=== PATIENT | female | born 1960 | race Caucasian/White ===

== ENCOUNTER 2018-06-01 08:59 | Emergency (ER) | payer SELFPAY ==
[~2018-06-01] VITALS: Ht 162.6 cm; Wt 92.7 kg
[2018-06-01 09:53] VITALS: BP 119/70
== END 2018-06-01 09:56 | disposition home or self-care (01) ==
LOC: ED 09:45
DX: B30.8 Other viral conjunctivitis (principal); B34.9 Viral infection, unspecified; E11.65 Type 2 diabetes mellitus with hyperglycemia; J02.9 Acute pharyngitis, unspecified
CPT/HCPCS: 82962; 99283